=== PATIENT | female | born 1985 | race African-American/Black ===

== ENCOUNTER 2018-09-02 12:51 | Emergency (ER) | payer SELFPAY ==
[~2018-09-02] VITALS: Ht 152.4 cm; Wt 109.0 kg
[2018-09-02 14:43] LABS: CLARITY URINE CLEAR (CLEAR); COLOR URINE YELLOW (YELLOW); KETONES URINE NEGATIVE (NEGATIVE); LEUKOCYTE ESTERASE URINE NEGATIVE (NEGATIVE); NITRITE URINE NEGATIVE (NEGATIVE); OCCULT BLOOD URINE NEGATIVE (NEGATIVE); PROTEIN URINE NEGATIVE (NEGATIVE); SPECIFIC GRAVITY URINE 1.024 (1.005-1.030); UROBILINOGEN URINE 0.2 E.U./dL (0.2-1.0)
[2018-09-02] MEDS ORDERED: ONDANSETRON HCL 4MG/2ML INJ IV STA (17:34)
[2018-09-02] MEDS ORDERED: MORPHINE SULFATE 4 MG/ML CPJ (NOT FOR IM USE) IV STA (17:34)
[2018-09-02] MEDS ORDERED: SODIUM CHLORIDE 0.9% 1,000 ML IV ONE (17:34)
[2018-09-02] MEDS ORDERED: CEFTRIAXONE 1 G PREMIX 50 ML IV ONE (17:45)
[2018-09-02 18:14] LABS: BASOPHILS % 0.8 % (0.0-2.0); EOSINOPHILS % 2.3 % (0.0-5.0); HEMATOCRIT. 38.5 % (36.0-48.0); HEMOGLOBIN. 12.8 g/dL (12.0-16.0); LYMPHOCYTES % 44.6 % (20.0-50.0); MEAN CORPUSCULAR HEMOGLOBIN 30.2 pg (28.0-32.0); NEUTROPHILS % 44.3 % (40.0-76.0); PLATELET 391 x1000/uL (130-400); RED BLOOD CELL COUNT 4.23 mill/uL (4.2-5.4); RED CELL DISTRIBUTION WIDTH 14.4 % (11.6-14.6)
[2018-09-02 18:17] LABS: CHLORIDE 108 mEq/L (98-107); PROTHROMBIN TIME 9.9 sec (9.6-11.0)
[2018-09-02 18:24] LABS: ETHANOL BLOOD < 10 mg/dL; HCG SCREEN NEGATIVE
[2018-09-02 19:31] LABS: *BENZODIAZEPINES SCREEN URINE NEGATIVE (NEGATIVE)
[2018-09-02 19:32] LABS: *AMPHETAMINES SCREEN URINE NEGATIVE (NEGATIVE); *COCAINE SCREEN URINE NEGATIVE (NEGATIVE); CANNABINOID URINE SCREEN NEGATIVE (NEGATIVE); METHADONE URINE SCREEN NEGATIVE (NEGATIVE); OPIATES URINE SCREEN NEGATIVE (NEGATIVE); PHENCYCLIDINE URINE SCREEN NEGATIVE (NEGATIVE)
[2018-09-02 19:33] LABS: *BARBITURATES SCREEN URINE PRESUMTIVE POSITIVE (NEGATIVE)
[2018-09-02] MEDS ORDERED: KETOROLAC 30MG/ML VIAL IV ONE (19:45)
[2018-09-02 20:46] VITALS: BP 118/69
== END 2018-09-02 20:50 | disposition home or self-care (01) ==
LOC: ER 12:51
DX: R10.9 Unspecified abdominal pain (principal); R11.0 Nausea; E78.00 Pure hypercholesterolemia, unspecified; I10 Essential (primary) hypertension; R56.9 Unspecified convulsions; Z87.440 Personal history of urinary (tract) infections; Z86.73 Personal history of transient ischemic attack (TIA), and cerebral infarction without residual deficits; Z98.890 Other specified postprocedural states; Z90.49 Acquired absence of other specified parts of digestive tract
CPT/HCPCS: 36415; 74176; 80053; 80305; 80320; 81003; 81025; 83605; 83690; 84703; 85025; 85610; 87040; 87077; 87086; 87186; 96365; 96375; 99284; J0696; J1885; J2270; J2405; J7030; G0480

== ENCOUNTER 2018-09-16 11:59 | Emergency (ER) | payer MEDICAID, OTHER ==
[~2018-09-16] VITALS: Ht 160 cm; Wt 101.4 kg
[2018-09-16 12:53] LABS: CLARITY URINE CLEAR (CLEAR); COLOR URINE YELLOW (YELLOW); KETONES URINE NEGATIVE (NEGATIVE); LEUKOCYTE ESTERASE URINE NEGATIVE (NEGATIVE); NITRITE URINE NEGATIVE (NEGATIVE); OCCULT BLOOD URINE NEGATIVE (NEGATIVE); PROTEIN URINE NEGATIVE (NEGATIVE); SPECIFIC GRAVITY URINE 1.027 (1.005-1.030)
[2018-09-16 15:05] VITALS: BP 135/72
== END 2018-09-16 15:07 | disposition home or self-care (01) ==
LOC: ER 11:59
DX: N76.0 Acute vaginitis (principal); M54.5 Low back pain; Z91.040 Latex allergy status; Z88.5 Allergy status to narcotic agent
CPT/HCPCS: 81025; 87210; 99283